=== PATIENT | female | born 1970 | race Caucasian/White ===

== ENCOUNTER → 2018-12-29 | Outpatient (CLI) | payer OTHER ==
[2018-12-29 09:39] LABS: ABSOLUTE EOSINOPHILS 0.1 thou/uL (0.0-0.7); ABSOLUTE LYMPHOCYTES 1.5 thou/uL (0.8-5.3); ABSOLUTE MONOCYTES 0.4 thou/uL (0.0-1.2); ABSOLUTE NEUTROPHILS 2.6 thou/uL (1.6-8.1); BASOPHILS 0.8 %; EOSINOPHILS 1.8 %; HEMATOCRIT 38.4 % (37.0-47.0); LYMPHOCYTES 33.3 %; MCH 31.2 pg (26.0-34.0); MCHC 33.7 g/dL (28.0-37.0); MCV 92.7 fL (80.0-100.0); NUCLEATED RBCS 0 /100WBC; PLATELET COUNT* 371 thou/uL (150-400); POLYS 56.1 %; RBC 4.15 mil/uL (4.20-5.00); RDW-CV 13.5 % (10.5-14.5); WBC 4.6 thou/uL (4.0-11.0)
[2018-12-29 09:53] LABS: ALBUMIN 3.8 g/dL (3.4-5.0); CALCIUM 8.7 mg/dL (8.5-10.1); POTASSIUM 4.3 mmol/L (3.5-5.1); TOTAL BILIRUBIN 0.5 mg/dL (<0.1-1.0); TOTAL PROTEIN 7.5 g/dL (6.4-8.2)
[2018-12-29 10:48] LABS: ESR (SEDRATE) 8 mm/hr (0-30)
--- NOTE | 2019-01-02 09:32 | EEG ---
[address] [address] EEG STUDY REPORT Name: PERLA GUNDERSON MELISSA Room: [facility]#: [id number] Admission: 12/29/18 Attend Phys: Ranjith Nuñez MD Discharge: Date of : 66 Report #: [id number] THIS REPORT FOR: //name// CC: NO STACI Nuñez DATE OF SERVICE: 12/29/2018 This patient is being evaluated for an episode of syncope. EEG was done by placing the electrode by standard 10-20 system of electrode placement. Both referential and sequential montages were used for recording. Background activity in this patient's EEG is about 9 Hz and 30 microvolt. The patient went to sleep that is associated with bilateral slowing and vertex sharp waves. Photic stimulation is unremarkable. Throughout the record, no active epileptiform activity was noticed. IMPRESSION: This patient's EEG is within normal limit. Thank you very much for this referral. <ELECTRONICALLY SIGNED> By: Ranjith Nuñez MD 01/02/19 0932 1637 [id number] Nuñez MD /nt
== END ==
LOC: M.LAB 12-12 13:46 → M.MRI 11:30 → M.LAB 01-05 10:30
PROVIDERS: Psychiatry & Neurology Neuromuscular Medicine
DX: R55 Syncope and collapse (principal); R53.1 Weakness; R51 Headache; Z87.39 Personal history of other diseases of the musculoskeletal system and connective tissue

== ENCOUNTER → 2019-01-14 | Outpatient (CLI) | payer OTHER ==
--- NOTE | 2019-01-14 12:37 | 2DMMODE ---
[place] [address] 2 D/M-MODE ECHOCARDIOGRAM Name: PERLA GUNDERSON MELISSA Room: [facility]#: [id number] Admission: 01/14/19 Attend Phys: Elliot Shelton MD Discharge: Date of : 66 Date of Service: 01/14/19 1237 Report #: [id number] THIS REPORT FOR: //name// APPROVED REPORT Study performed: 01/14/2019 09:05:39 EXAM: Comprehensive 2D, Doppler, and color-flow Echocardiogram Patient Location: Out-Patient BSA: 1.73 HR: 58 bpm BP: 128/80 mmHg Other Information Study Quality: Excellent Indications Syncope 2D Dimensions IVSd: 10.54 (7-11mm) LVOT Diam: 20.35 (18-24mm) LVDd: 48.42 mm PWd: 7.06 (7-11mm) Ascending Ao: 26.89 (22-36mm) LVDs: 30.70 (25-40mm) Aortic Root: 29.75 mm Volumes Left Atrial Volume (Systole) LA ESV Index: 20.80 mL/m2 Aortic Valve AoV Peak Long.: 1.19 m/s AO Peak Gr.: 5.62 mmHg LVOT Max P.76 mmHg AO Mean Gr.: 2.98 mmHg LVOT Mean P.18 mmHg LVOT Max V: 0.83 m/s AO V2 VTI: 26.65 cm LVOT Mean V: 0.49 m/s CHARO (VTI): 2.31 cm2 LVOT V1 VTI: 18.92 cm Mitral Valve E/A Ratio: 1.80 MV Decel. Time: 232.06 ms MV E Max Long.: 0.73 m/s MV PHT: 67.30 ms MVA (PHT): 3.27 cm2 [place] [address] 2 D/M-MODE ECHOCARDIOGRAM Name: NEPTALIPERLA JO Room: [facility]#: [id number] Admission: 01/14/19 Attend Phys: Elliot Shelton MD Discharge: Date of : 66 Date of Service: 01/14/19 1237 Report #: [id number] TDI E/Lateral E': 5.62 E/Medial E': 8.11 Medial E' Long.: 0.09 m/s Lateral E' Long.: 0.13 m/s Pulmonary Valve PV Peak Long.: 0.68 m/s PV Peak Gr.: 1.86 mmHg Tricuspid Valve RAP Estimate: 5.00 mmHg TR Peak Gr.: 20.82 mmHg RVSP: 25.82 mmHg PA Pressure: 25.82 mmHg Left Ventricle The left ventricle is normal size. There is normal LV segmental wall motion. There is normal left ventricular wall thickness. Left ventricular systolic function is normal. The left ventricular ejection fraction is within the normal range. LVEF is 55-60%. The left ventricular diastolic function is normal. Right Ventricle The right ventricle is normal size. The right ventricular systolic function is normal. Atria The left atrium size is normal. The right atrium size is normal. Aortic Valve The aortic valve is normal in structure. No aortic regurgitation is present. There is no aortic valvular stenosis. Mitral Valve The mitral valve is normal in structure. Mild mitral regurgitation. No evidence of mitral valve stenosis. Tricuspid Valve The tricuspid valve is normal in structure. Mild tricuspid regurgitation. estimated pa pressure 30 mm Hg Pulmonic Valve The pulmonary valve is normal in structure. Mild pulmonic regurgitation[place] [address] 2 D/M-MODE ECHOCARDIOGRAM Name: PERLA GUNDERSON MELISSA Room: [facility]#: [id number] Admission: 01/14/19 Attend Phys: Elliot Shelton MD Discharge: Date of : 66 Date of Service: 01/14/19 1237 Report #: [id number] The aortic root is normal in size. IVC is normal in size and collapses >50% with inspiration. Pericardium There is no pericardial effusion. <Conclusion> LVEF is 55-60%. Mild mitral regurgitation. Mild tricuspid regurgitation. estimated pa pressure 30 mm Hg <ELECTRONICALLY SIGNED> By: Philip Abbott MD, FACC 01/14/19 1237 1237 [id number] Philip Abbott MD, FACC /INF
== END ==
LOC: M.CRD 01-12 09:00
DX: I08.8 Other rheumatic multiple valve diseases (principal)

== ENCOUNTER → 2019-03-03 | Outpatient (CLI) | payer OTHER | LOC: M.RAD 10:47 | DX: Z12.31 Encounter for screening mammogram for malignant neoplasm of breast (principal) ==